=== PATIENT | male | born 1960 ===

== ENCOUNTER 2025-01-14 08:03 | Day surgery (SDC) | payer OTHER ==
[~2025-01-14] VITALS: Ht 172.7 cm; Wt 56.5 kg
[~2025-01-14 08:03] MED LIST: Balanced Salt Epinephrine Irrigation Solution 500 mL IR SCH; Diazepam 5 MG Tab PO PRN; Diazepam 5 MG Tab PO SCH; Lidocaine HCl/Pf 1% 5 ML VIAL XX SCH; Moxifloxacin HCL 0.5 MG/0.1 ML 0.4MLSYR LEFTEYE SCH; Ondansetron 4 MG SoluTab MM PRN; PHENYLEPHRINE\\TROPICAMIDE\\TETRACAINE OPHTHALMIC DILATING SOLN LEFTEYE PRN; Povidone-Iodine 450 DROP/30 ML Solution LEFTEYE SCH; Povidone-Iodine 450 DROP/30 ML Solution ONE; Tetracaine HCl/Pf 0.5% Opth Soln 4 ml ONE; Triamcinolone Inj Susp 40 MG / ML 1ML Vial INJ SCH; Triamcinolone Inj Susp 40 MG / ML 1ML Vial ONE
[2025-01-14] MEDS ORDERED: Diazepam 10 MG Tab ONE (08:26)
[2025-01-14] MEDS ORDERED: AMLO5 PO (08:36)
[2025-01-14] MEDS ORDERED: Chantix1 MG PO (08:37)
[2025-01-14] MEDS ORDERED: ONDA4 PO (08:37)
[2025-01-14] MEDS ORDERED: TAMS.4ER PO (08:37)
[2025-01-14] MEDS ORDERED: FAMO40 (08:37)
[2025-01-14] MEDS ORDERED: TIOT18 INH (08:37)
[2025-01-14] MEDS ORDERED: B-12500 MC2 PO (08:38)
[2025-01-14] MEDS ORDERED: ALBU90OI INH (08:38)
[2025-01-14] MEDS ORDERED: WIXELA 250-501 EAC1 IH (08:38)
--- NOTE | 2025-01-14 08:48 | NUR ---
01/14/25 0848 Tanja Tamez PT REPORTS 0/10 ANXIETY PRIOR TO ADMINISTRATION OF VALIUM 10MG PO AT 0835. TETRACAINE IN AT 0836 PLEDGETT IN AT 0838 CALL LIGHT PLACED IN PT'S HAND. CONTINUOUS HR AND SPO2 MONITORING IN PLACE
--- NOTE | 2025-01-14 09:30 | NUR ---
01/14/25 0930 Gilles Deleon BP 143/91, P63, O2 SAT 100%. PT RESTING COMFORTABLY WITH BLOW BY O2 AT 10L.
[2025-01-14 10:08] VITALS: BP 127/84
== END 2025-01-14 10:00 | disposition home or self-care (01) ==
LOC: ORSCSDS 08:03
PROVIDERS: Ophthalmology
PROC: 08RK3JZ Replacement of Left Lens with Synthetic Substitute, Percutaneous Approach (ICD-10-PCS; principal; 2025-01-14 09:30)
DX: H25.812 Combined forms of age-related cataract, left eye (principal); H21.81 Floppy iris syndrome; Z86.73 Personal history of transient ischemic attack (TIA), and cerebral infarction without residual deficits; R06.02 Shortness of breath; I10 Essential (primary) hypertension; J43.9 Emphysema, unspecified; Z79.899 Other long term (current) drug therapy
CPT/HCPCS: A9270; J3301; V2632